=== PATIENT | male | born 1995 | race African-American/Black ===

== ENCOUNTER 2018-01-30 19:29 | Emergency (ER) | payer BC, OTHER ==
[2018-01-30] MEDS ORDERED: LIDOCAINE 1% INJ-PF (10 MG/ML) 30 ML SDV INJ ONE (19:59)
--- NOTE | 2018-01-30 20:12 | ER Document Report ---
ED General - General Chief Complaint: Laceration Stated Complaint: CUT ON INSIDE OF LIP TRAVEL OUTSIDE OF THE [place] IN LAST 30 DAYS: No - HPI Notes: 23-year-old male presents with lip laceration. Patient was playing basketball just prior to arrival when he had fallen and struck his lip. Sustained laceration his left upper inner lip. No loss consciousness, no vomiting. Throbbing pain, nonradiating. No other modifying factors, no other associated symptoms, no other provocative or palliative factors. - Related Data Allergies/Adverse Reactions: No Known Drug Allergies Allergy (Mild, Verified 01/30/18 19:29) Past Medical History - Social History Smoking Status: Never Smoker Family History: None - Medical History Medical History: Negative - Immunizations Immunizations up to date: Yes Hx Diphtheria, Pertussis, Tetanus Vaccination: Yes Review of Systems - Review of Systems Notes: Review of systems as in history of present illness, otherwise no significant headache, chest pain, abdominal pain. Physical Exam - Vital signs Vitals: Temp Pulse Resp BP Pulse Ox 98.7 F 60 16 124/75 99 01/30/18 19:30 01/30/18 19:30 01/30/18 19:30 01/30/18 19:30 01/30/18 19:30 - Notes Notes: General: Well-developed, well-nourished HEENT: Normocephalic. Left upper lip shows gaping approximately 1 cm curvilinear laceration, no intraoral trauma.. No louis sign, no hemotympanum. Mucosa is moist. No intraoral trauma. Neck: Midline trachea, no JVD. No midline cervical spine tenderness. No step- off or deformity. Chest: Normal excursion, no accessory muscle use. No gross trauma. Abdomen: Soft, nondistended. Nontender. No bruising. Pelvis: Stable. Vascular: Strong and symmetric upper and lower extremity pulses. Well-perfused extremities. Motor: Normal tone and power. Neurologic: Alert, nonfocal. Sensation symmetric and intact. Skin: No significant lacerations or purpura. Extremities: No cyanosis. No significant injury noted. Course - Re-evaluation Re-evalutation: 01/30/18 20:12 Well-appearing male with lip laceration. Will repair as described below. 01/30/18 21:09 Laceration repaired as described below. Patient is discharged home with a prescription for Pen-Vee K, outpatient follow-up. Procedure note: After anesthesia with 1% lidocaine with epinephrine, the wound is irrigated and explored, no evidence of tenderness, vascular or nerve disruption. No evidence of foreign body. Wound was then closed using simple interrupted sutures of 6-0 fast-absorbing gut. There is good tissue approximation cosmesis. A total of 1.5 cm closure was achieved. - Vital Signs Vital signs: Temp Pulse Resp BP Pulse Ox 98.7 F 60 16 124/75 99 01/30/18 19:30 01/30/18 19:30 01/30/18 19:30 01/30/18 19:30 01/30/18 19:30 Discharge - Discharge Clinical Impression: Lip laceration Qualifiers: Encounter type: initial encounter Qualified Code(s): S01.511A - Laceration without foreign body of lip, initial encounter Condition: Good Disposition: HOME, SELF-CARE Instructions: Laceration Care (OM) Prescriptions: Penicillin V Potassium 500 mg PO Q6 #28 tablet Referrals: SETH SCHAFER MD [Primary Care Provider] - Follow up as needed
[2018-01-30 22:03] VITALS: BP 120/88
== END 2018-01-30 21:20 | disposition home or self-care (01) ==
LOC: ER 19:29
DX: S01.511A Laceration without foreign body of lip, initial encounter (principal); W19.XXXA Unspecified fall, initial encounter; Y93.67 Activity, basketball
CPT/HCPCS: 99282; 12011; J3490